=== PATIENT | female | born 2000 | race African-American/Black ===

== ENCOUNTER 2021-03-25 20:44 | Emergency (ER) | payer SELFPAY ==
[2021-03-26] MEDS ORDERED: TOPUD PO (07:23)
== END 2021-03-25 23:13 | disposition left against medical advice (07) ==
LOC: ER 20:44
DX: N93.8 Other specified abnormal uterine and vaginal bleeding (principal); Z53.21 Procedure and treatment not carried out due to patient leaving prior to being seen by health care provider

== ENCOUNTER 2021-03-26 05:25 | Emergency (ER) | payer MEDICAID ==
[~2021-03-26] VITALS: Ht 170.2 cm; Wt 75.0 kg
[2021-03-26] MEDS ORDERED: METOCLOPRAMIDE HCL 10MG/2ML VIAL IV ONE (05:45)
[2021-03-26] MEDS ORDERED: ACETAMINOPHEN 325MG TABLET PO ONE (06:00)
[2021-03-26 06:11] LABS: BASOPHILS % 0.4 % (0.0-2.0); EOSINOPHILS % 0.7 % (0.0-5.0); HEMATOCRIT. 36.1 % (36.0-48.0); HEMOGLOBIN. 11.9 g/dL (12.0-16.0); LYMPHOCYTES % 27.5 % (20.0-50.0); MEAN CORPUSCULAR VOLUME 94.1 fL (81.0-99.0); MEAN PLATELET VOLUME 7.7 fl (7.4-10.4); MONOCYTES % 10.2 % (2.0-8.0); NEUTROPHILS % 61.2 % (40.0-76.0); PLATELET 328 x1000/uL (130-400); RED BLOOD CELL COUNT 3.84 mill/uL (4.2-5.4); RED CELL DISTRIBUTION WIDTH 13.5 % (11.6-14.6)
[2021-03-26 06:16] LABS: CHLORIDE 108 mEq/L (98-107)
[2021-03-26 06:40] LABS: B-HCG QUANTITATIVE 3701 mIU/mL (<3)
[2021-03-26] MEDS ORDERED: TOPUD PO (07:23)
[2021-03-26 10:00] VITALS: BP 125/85
== END 2021-03-26 10:31 | disposition home or self-care (01) ==
LOC: ER 05:25
DX: O02.1 Missed abortion (principal); Z3A.01 Less than 8 weeks gestation of pregnancy
CPT/HCPCS: 36415; 76856; 80053; 84702; 85025; 86850; 86900; 86901; 96374; 99284; J2765

== ENCOUNTER 2021-03-26 21:12 | Inpatient (IN) | payer MEDICAID ==
[~2021-03-26] VITALS: Ht 167.6 cm; Wt 98.4 kg
[~2021-03-26 21:12] MED LIST: TOPUD PO
[2021-03-26] MEDS ORDERED: ACETAMINOPHEN WITH CODEINE 300/30MG TABLET PO STA (22:07)
[2021-03-26] MEDS ORDERED: SODIUM CHLORIDE 0.9% 1,000 ML IV ONE ×2 (22:15→22:45)
[2021-03-26 22:55] LABS: BASOPHILS % 0.2 % (0.0-2.0); HEMATOCRIT. 25.3 % (36.0-48.0); HEMOGLOBIN. 8.6 g/dL (12.0-16.0); LYMPHOCYTES % 10.6 % (20.0-50.0); MEAN CORPUSCULAR HEMOGLOBIN 31.6 pg (28.0-32.0); MEAN CORPUSCULAR VOLUME 93.5 fL (81.0-99.0); MEAN PLATELET VOLUME 8.2 fl (7.4-10.4); MONOCYTES % 5.9 % (2.0-8.0); NEUTROPHILS % 83.3 % (40.0-76.0); PLATELET 365 x1000/uL (130-400); RED BLOOD CELL COUNT 2.71 mill/uL (4.2-5.4); RED CELL DISTRIBUTION WIDTH 13.5 % (11.6-14.6)
[2021-03-26 22:59] LABS: CHLORIDE 110 mEq/L (98-107)
[2021-03-26] MEDS ORDERED: LORAZEPAM 2MG/ML CPJ IV ONE (23:45)
[2021-03-27] MEDS ORDERED: MEPERIDINE HCL/PF 25MG/ML CPJ IV PRN ×2 (00:30)
[2021-03-27] MEDS ORDERED: SODIUM CHLORIDE 0.9% 1,000 ML IV ONE (00:30)
[2021-03-27] MEDS ORDERED: HYDROMORPHONE HCL/PF 2MG/ML CPJ IV PRN (00:30)
[2021-03-27] MEDS ORDERED: MORPHINE SULFATE 2 MG/ML CPJ (NOT FOR IM USE) IV PRN (00:30)
[2021-03-27] MEDS ORDERED: ONDANSETRON HCL 4MG/2ML INJ IV PRN ×2 (00:30→01:45)
[2021-03-27] MEDS ORDERED: CEFAZOLIN SODIUM 1000MG/VIAL ONE (00:51)
[2021-03-27] MEDS ORDERED: PROPOFOL 200MG/20ML VIAL IV ONE (00:51)
[2021-03-27] MEDS ORDERED: SUCCINYLCHOLINE CHLORIDE 200MG/10ML IV ONE (00:51)
[2021-03-27] MEDS ORDERED: PHENYLEPHRINE HCL 10 MG/ML 1ML (IV VIAL) IV ONE (00:51)
[2021-03-27] MEDS ORDERED: SODIUM CHLORIDE 0.9% 10ML VIAL ONE (00:51)
[2021-03-27] MEDS ORDERED: GLYCOPYRROLATE 0.2 MG/ML 2ML VIAL ONE ×2 (00:51→01:59)
[2021-03-27] MEDS ORDERED: FENTANYL CITRATE/PF 50MCG/ML 2ML VIAL ONE (00:51)
[2021-03-27] MEDS ORDERED: MIDAZOLAM HCL 2 MG/2 ML VIAL ONE (00:51)
[2021-03-27] MEDS ORDERED: NEOSTIGMINE METHYLSULFATE 1MG/ML 10 ML VIAL ONE ×2 (00:51→01:59)
[2021-03-27] MEDS ORDERED: ROCURONIUM BROMIDE 10MG/ML VIAL 5ML IV ONE (00:51)
[2021-03-27] MEDS ORDERED: METOCLOPRAMIDE HCL 10MG/2ML VIAL ONE (00:52)
[2021-03-27] MEDS ORDERED: ETOMIDATE 2MG/ML 10ML VIAL IV ONE (01:07)
[2021-03-27] MEDS ORDERED: IBUPROFEN 400MG TABLET PO PRN (01:45)
[2021-03-27] MEDS ORDERED: ACETAMINOPHEN 500MG TABLET PO PRN (01:45)
[2021-03-27] MEDS ORDERED: HYDROCODONE/ACETAMINOPHEN 5/325MG TABLET PO PRN (01:45)
[2021-03-27] MEDS ORDERED: KETOROLAC 30MG/ML VIAL IM ONE (01:45)
[2021-03-27] MEDS ORDERED: DIPHENHYDRAMINE 25MG CAPSULE PO PRN (01:45)
[2021-03-27] MEDS ORDERED: IBUPROFEN 800MG TABLET PO PRN (01:45)
[2021-03-27 03:30] VITALS: BP 122/68
[2021-03-27 04:00] VITALS: BP 122/68
[2021-03-27] MEDS: DEXT 5%/LACTATED RINGERS 1,000 ML IV SCH ×2 (06:23→09:45)
[2021-03-27 08:00] VITALS: BP 101/56
[2021-03-27] MEDS ORDERED: METRONIDAZOLE 500 MG PREMIX 100 ML IV SCH ×2 (09:00→16:30)
[2021-03-27] MEDS ORDERED: PRENATAL VIT/FE FUMARATE/FA TABLET PO SCH (09:00)
[2021-03-27 15:42] LABS: BASOPHILS % 0.2 % (0.0-2.0); EOSINOPHILS % 0.3 % (0.0-5.0); HEMATOCRIT. 25.8 % (36.0-48.0); HEMOGLOBIN. 8.9 g/dL (12.0-16.0); LYMPHOCYTES % 20.3 % (20.0-50.0); MEAN CORPUSCULAR HEMOGLOBIN 30.5 pg (28.0-32.0); MEAN CORPUSCULAR VOLUME 88.5 fL (81.0-99.0); MEAN PLATELET VOLUME 8.4 fl (7.4-10.4); NEUTROPHILS % 71.2 % (40.0-76.0); PLATELET 205 x1000/uL (130-400); RED BLOOD CELL COUNT 2.91 mill/uL (4.2-5.4); RED CELL DISTRIBUTION WIDTH 15.4 % (11.6-14.6)
[2021-03-27 16:00] VITALS: BP 101/58
[2021-03-27 17:10] VITALS: BP 115/61
[2021-03-28] MEDS ORDERED: FERROUS SULFATE 325MG TABLET PO SCH (07:40)
== END 2021-03-27 19:08 | disposition home or self-care (01) | DRG 543 ==
LOC: ER 21:12 → 8WST 03-27 03:17
PROVIDERS: ADMIT Specialist; ATTEND Specialist
PROC: 10D17ZZ Extraction of Products of Conception, Retained, Via Natural or Artificial Opening (ICD-10-PCS; principal; 2021-03-27)
PROC: 30233N1 Transfusion of Nonautologous Red Blood Cells into Peripheral Vein, Percutaneous Approach (ICD-10-PCS; 2021-03-27)
DX: O03.4 Incomplete spontaneous abortion without complication (principal); O99.111 Other diseases of the blood and blood-forming organs and certain disorders involving the immune mechanism complicating pregnancy, first trimester; O99.011 Anemia complicating pregnancy, first trimester; O99.321 Drug use complicating pregnancy, first trimester; F12.10 Cannabis abuse, uncomplicated; D72.829 Elevated white blood cell count, unspecified; D64.9 Anemia, unspecified; R73.9 Hyperglycemia, unspecified; O99.331 Smoking (tobacco) complicating pregnancy, first trimester; O99.211 Obesity complicating pregnancy, first trimester; F17.210 Nicotine dependence, cigarettes, uncomplicated; Z3A.10 10 weeks gestation of pregnancy
CPT/HCPCS: 36415; 80053; 84702; 85025; 86850; 86900; 86920; 88305; 94002; 99291; J0330; J0690; J2060; J2250; J2370; J2405; J2704; J2710; J2765; J3010; J3490; J7030; P9016